=== PATIENT | male | born 1960 | race Caucasian/White ===

== ENCOUNTER → 2016-12-07 | Outpatient (CLI) | payer BC | LOC: RAD 11:10 | DX: M25.561 Pain in right knee (principal); M25.461 Effusion, right knee ==

== ENCOUNTER → 2016-12-14 | Outpatient (CLI) | payer BC | LOC: RAD 09:55 | DX: S89.81XA Other specified injuries of right lower leg, initial encounter (principal); X50.1XXA Overexertion from prolonged static or awkward postures, initial encounter ==

== ENCOUNTER → 2018-06-04 | Outpatient (CLI) | payer BC | LOC: RAD 05-30 15:14 | DX: M25.861 Other specified joint disorders, right knee (principal); M17.11 Unilateral primary osteoarthritis, right knee; M25.461 Effusion, right knee; X50.0XXA Overexertion from strenuous movement or load, initial encounter ==